=== PATIENT | male | born 1950 | race Caucasian/White ===

== ENCOUNTER → 2020-10-13 | Outpatient (CLI) | payer MEDICARE, OTHER ==
[~2020-10-13] MED LIST: HYDR12.58 PO; SIMV10TA15 PO
== END ==
LOC: LAB 08:20
PROVIDERS: ATTEND Nurse Anesthetist, Certified Registered
DX: Z01.812 Encounter for preprocedural laboratory examination (principal); Z20.828 Contact with and (suspected) exposure to other viral communicable diseases
CPT/HCPCS: C9803; U0003

== ENCOUNTER → 2020-10-17 | Day surgery (SDC) | payer MEDICARE, OTHER ==
[~2020-10-17] MED LIST changes: +IPRATRPIUM/ALBUTEROL 0.5/2.5MG 3 ML NEBU. NEB PRN; +IV RINGERS SOLUTION,LACTATED 1,000 ML IV SCH; +LIDOCAINE 2% PF 5 ML VIAL. ONE; +MIDAZOLAM HCL PF 2 MG/2 ML VIAL. IV ONE; +ONDANSETRON PF 4 MG/2 ML VIAL. IV PRN; +PROPOFOL 10,000 MCG/ML (20ML) VIAL IV ONE
[2020-10-17 11:23] VITALS: BP 127/86
== END | disposition home or self-care (01) ==
LOC: SURG 09:05
PROVIDERS: ATTEND Internal Medicine Gastroenterology
DX: Z12.11 Encounter for screening for malignant neoplasm of colon (principal); K64.8 Other hemorrhoids; Z79.899 Other long term (current) drug therapy
CPT/HCPCS: G0121; J2001; J2704; J7120; 45378

== ENCOUNTER → 2021-11-22 | Outpatient (CLI) | payer MEDICARE, OTHER ==
[2020-10-17 11:23] VITALS: BP 127/86
[~2021-11-22] MED LIST changes: -IPRATRPIUM/ALBUTEROL 0.5/2.5MG 3 ML NEBU. NEB PRN; -IV RINGERS SOLUTION,LACTATED 1,000 ML IV SCH; -LIDOCAINE 2% PF 5 ML VIAL. ONE; -MIDAZOLAM HCL PF 2 MG/2 ML VIAL. IV ONE; -ONDANSETRON PF 4 MG/2 ML VIAL. IV PRN; -PROPOFOL 10,000 MCG/ML (20ML) VIAL IV ONE
--- NOTE | 2021-11-22 13:17 | RAD ---
Bone densitometry 11/22/2021 10:20 AM Indication: Reason: OSTEOPENIA / Spl. Instructions: / History: Comparison Study: None available. Discussion: Bone Densitometry was performed with dual photon absorption of the lumbar spine and pro ximal right femur Lumbar Spine: Bone average density is 1.295g/cm2 for L1-L4. T-Score is 0.6. Right femoral neck: Bone average density is 0.936g/cm2. T-Score is -1.0. IMPRESSION: Bone mineral density within the low normal range Note: Definitions established by the [employer] Organization: Normal: T-score is -1.0 or above. Osteopenia: T-score is between -1.0 and -2.5. Osteoporosis: T-score is -2.5 or below. Electronically signed by: Ignacio Hong MD (11/22/2021 1:14 PM) [id number]
== END ==
LOC: DXRAD 10:16
PROVIDERS: ATTEND Family Medicine
DX: M85.88 Other specified disorders of bone density and structure, other site (principal)
CPT/HCPCS: 77080